=== PATIENT | female | born 1945 | race Caucasian/White ===

== ENCOUNTER 2023-12-02 12:52 | Observation (INO) | payer OTHER ==
[~2023-12-02] VITALS: Ht 162.6 cm; Wt 64.2 kg
[2023-12-02 13:03] VITALS: BP 169/94; PULSE 77; RESP 18; TEMP 97.8; O2SAT 97
[2023-12-02 13:28] LABS: BASOPHIL % 0.3 % (0.0-0.2); EOSINOPHIL % 0.5 % (0.0-5.0); HEMATOCRIT(ML) 39.8 % (36.0-46.0); HEMOGLOBIN 12.5 g/dL (12.0-15.0); LYMPHOCYTES # 0.26 10^3/uL1 (1.0-4.8); MEAN CORP HGB 24.4 pg (26-34); MEAN CORP HGB CONCENTRATION 31.4 g/dL (33-36.5); MEAN CORP VOLUME 77.7 fL (78-100); MONOCYTES # 0.4 10^3/uL (0.3-0.8); MONOCYTES % 6.5 % (5.0-12.0); NEUTROPHIL # 5.7 10^3/uL (1.8-7.7); NEUTROPHILS % 88.7 % (41.0-85.0); RED BLOOD CELL 5.12 10^6/uL (4.00-5.20); RED CELL DISTRIBUTION WIDTH 21.8 % (11.5-14.5); WHITE BLOOD CELL 6.5 10^3/uL (4.5-11.0)
[2023-12-02] MEDS ORDERED: NS 1000ML 1,000 ML ONE (13:28)
[2023-12-02] MEDS ORDERED: IMODIUM ONE (13:28)
[2023-12-02] MEDS: IMODIUM PO STA (13:33)
[2023-12-02] MEDS: NS 1000ML 1,000 ML IV STA (13:33)
[2023-12-02] MEDS ORDERED: OFIRMEV 1000 MG/100 ML 100 ML IV ONE (13:38)
[2023-12-02] MEDS: OFIRMEV 1000 MG/100 ML IV STA (13:40)
[2023-12-02 13:43] LABS: ALBUMIN(ML) 3.7 g/dL (3.4-5.0); ALBUMIN/GLOBULIN RATIO 1.233; ANION GAP 14.9; BUN/CREATININE RATIO 32.29 (10.0-20.0); CALCIUM 8.4 mg/dL (8.4-10.5); CARBON DIOXIDE 22.8 mmol/L (20.0-32); CREATININE SERUM 0.96 mg/dL (0.59-1.40); EST GFR, NON-AA 56.2 (>/=60); POTASSIUM 3.7 mmol/L (3.6-5.2)
[2023-12-02 14:12] LABS: BILIRUBIN,URINE NEGATIVE (NEGATIVE); LEUKOCYTE ESTERASE ,URINE 1+ (NEGATIVE); NITRATE,URINE NEGATIVE (NEGATIVE); UROBILINOGEN,URINE 0.2 E.U./dL (0.2)
[2023-12-02 14:13] LABS: APPEARANCE,URINE HAZY; UA COLOR YELLOW
[2023-12-02] MEDS: HNS 1000ML/KCL 20MEQ 1,000 ML IV STA (14:28)
[2023-12-02] MEDS ORDERED: NS 100ML 100 ML IV ONE (14:32)
[2023-12-02] MEDS ORDERED: ROCEPHIN ONE (14:32)
[2023-12-02] MEDS: ROCEPHIN 1,000 MG in NS 100ML 100 ML IV STA (14:39)
[2023-12-02] MEDS ORDERED: DEXTROSE 50%-WATER SYRINGE IV PRN (15:00)
[2023-12-02] MEDS ORDERED: TYLENOL PO PRN (15:00)
[2023-12-02] MEDS ORDERED: D5W 1000ML 1,000 ML IV PRN (15:00)
[2023-12-02] MEDS ORDERED: HNS 1000ML/KCL 20MEQ 1,000 ML ONE (15:25)
[2023-12-02] MEDS: LACTATED RINGERS 1,000 ML IV SCH (15:30)
[2023-12-02] MEDS ORDERED: ZOFRAN IV PRN (15:30)
[2023-12-02] MEDS: FLAGYL 500MG/ 100 ML NS 100 ML IV SCH (15:58)
[2023-12-02 17:17] VITALS: BP 162/90; PULSE 65; RESP 18; TEMP 97.8; O2SAT 98
[2023-12-02] MEDS: HUMALOG SQ SCH (17:30)
[2023-12-02 17:59] VITALS: BP 162/90; PULSE 65; RESP 18; TEMP 97.8; O2SAT 98
[2023-12-02 19:27] VITALS: BP 158/72; PULSE 89; RESP 18; TEMP 97.6; O2SAT 97
[2023-12-02] MEDS: MELATONIN PO PRN (21:52)
[2023-12-03 00:16] VITALS: BP 148/78; PULSE 89; RESP 16; TEMP 98.1; O2SAT 96
[2023-12-03 04:34] VITALS: BP 135/50; PULSE 66; RESP 18; TEMP 98.2; O2SAT 97
[2023-12-03 04:50] LABS: BASOPHIL % 0.3 % (0.0-0.2); EOSINOPHIL % 0.6 % (0.0-5.0); HEMATOCRIT(ML) 34.5 % (36.0-46.0); HEMOGLOBIN 10.8 g/dL (12.0-15.0); LYMPHOCYTES # 0.71 10^3/uL1 (1.0-4.8); MEAN CORP HGB 24.4 pg (26-34); MEAN CORP HGB CONCENTRATION 31.3 g/dL (33-36.5); MEAN CORP VOLUME 78.1 fL (78-100); MONOCYTES # 0.3 10^3/uL (0.3-0.8); MONOCYTES % 10.6 % (5.0-12.0); NEUTROPHIL # 2.1 10^3/uL (1.8-7.7); NEUTROPHILS % 66.2 % (41.0-85.0); PLATELET COUNT 183 10^3/uL (150-400); RED BLOOD CELL 4.42 10^6/uL (4.00-5.20); RED CELL DISTRIBUTION WIDTH 21.7 % (11.5-14.5); WHITE BLOOD CELL 3.2 10^3/uL (4.5-11.0)
[2023-12-03 04:51] LABS: +ADD MANUAL DIFF(NO CHRG) NO
[2023-12-03 05:15] LABS: ANION GAP 12.1; BUN/CREATININE RATIO 24.05 (10.0-20.0); CALCIUM 7.2 mg/dL (8.4-10.5); CARBON DIOXIDE 21.1 mmol/L (20.0-32); CREATININE SERUM 0.79 mg/dL (0.59-1.40); EST GFR, NON-AA 70.4 (>/=60); POTASSIUM 3.2 mmol/L (3.6-5.2)
[2023-12-03 08:11] VITALS: BP 149/68; PULSE 57; RESP 18; TEMP 97.3; O2SAT 96
[2023-12-03] MEDS: KLOR-CON 10 PO SCH (09:12)
[2023-12-03] MEDS: KCL 20 MEQ/100 ML SOL 100 ML IV STA (09:14)
[2023-12-03] MEDS ORDERED: METR-67 PO (10:39)
[2023-12-03] MEDS ORDERED: CEFD300C2 PO (10:39)
[2023-12-03] MEDS ORDERED: NS 250ML 250 ML ONE (13:08)
[2023-12-03] MEDS: OFIRMEV 1000 MG/100 ML IV SCH (13:09)
[2023-12-03 13:34] VITALS: BP 172/92; PULSE 71; RESP 18; TEMP 98.4; O2SAT 98
[2023-12-03] MEDS ORDERED: [UNRECOGNIZED DRUG - OTHER] IV ONE (13:45)
[2023-12-03] MEDS: [UNRECOGNIZED DRUG - OTHER] IV ONE (13:45)
[2023-12-03 13:56] VITALS: BP_SYST 132; BP_SYST 150; BP_DIAS 70; BP_DIAS 78
[2023-12-03] MEDS ORDERED: NS 100ML 100 ML IV ONE (14:14)
[2023-12-03] MEDS ORDERED: ROCEPHIN ONE (14:14)
[2023-12-03] MEDS: ROCEPHIN 1,000 MG in NS 100ML 100 ML IV SCH (14:16)
[2023-12-03 16:45] VITALS: BP 150/70; PULSE 71; RESP 18; TEMP 98.4; O2SAT 98
== END 2023-12-03 15:40 | disposition home or self-care (01) ==
LOC: ER 12:52 → OBS 14:32
PROVIDERS: ADMIT Internal Medicine; ATTEND Internal Medicine
DX: K52.9 Noninfective gastroenteritis and colitis, unspecified (principal); E86.0 Dehydration; N39.0 Urinary tract infection, site not specified; E03.9 Hypothyroidism, unspecified; I10 Essential (primary) hypertension; E11.9 Type 2 diabetes mellitus without complications; I25.10 Atherosclerotic heart disease of native coronary artery without angina pectoris; Z86.79 Personal history of other diseases of the circulatory system; Z88.0 Allergy status to penicillin; Z95.1 Presence of aortocoronary bypass graft; Z79.899 Other long term (current) drug therapy
CPT/HCPCS: 96367; 96365; 96366 ×3; 96361 ×2; 96375; 99284; 87086; 80053; 85025 ×2; 82948 ×4; 36415 ×2; 81001; 96376; 80048; G0378 ×25; J7030 ×2; J0131 ×2; J3490 ×4; J0696 ×4; J0612 ×2; J7050; J7120; J3480 ×2